=== PATIENT | female | born 1980 | race Caucasian/White ===

== ENCOUNTER 2020-01-17 10:35 | Emergency (ER) | payer OTHER, SELFPAY ==
[2020-01-17 10:39] VITALS: BP 137/89; PULSE 91; RESP 12; TEMP 36.7; O2SAT 99
--- NOTE | 2020-01-17 10:45 | ED.DIZZY ---
HPI - Dizziness General Chief Complaint: Dizziness Stated Complaint: dizziness for 1 day Time Seen by Provider: 01/17/20 10:44 Source: patient and RN notes reviewed Mode of arrival: ambulatory Limitations: no limitations History of Present Illness HPI Narrative: A 39 y/o female presents to the ED with severe dizziness beginning yesterday morning when she woke up. She describes the dizziness as room spinning and states she needed help walking. She reports associated N/V, intermittent CLINT hand numbness, and a HELLER yesterday, that has since resolved. She notes that turning her head aggravates her dizziness and denies anything alleviating it. She also denies any ear pain, hearing changes, cough, sore throat, rhinooreha, nasal congestion, CP, fevers, or ABD pain. MD elicited complaint: dizziness Onset (ago): day(s) (yesterday) Timing: awoke with symptoms Description: room spinning Exacerbating factors: other (turning head) Relieving factors: nothing Associated symptoms: nausea, vomiting and other (Intermittent CLINT hand numbness, HELLER (resolved)) Related Data Allergies Allergy/AdvReac Type Severity Reaction Status Date / Time Penicillins Allergy Unknown Rash Verified 01/17/20 10:45 Review of Systems Review of Systems: All systems reviewed & are unremarkable except as noted in HPI and below Constitutional: Constitutional: Denies fever(s) ENT: Denies nasal congestion, Denies nasal discharge, Denies sore throat and Denies other (ear pain, hearing changes) Cardiovascular: Cardiovascular: Denies chest pain Respiratory: Respiratory: Denies cough Gastrointestinal: Gastrointestinal: Denies abdominal pain, Reports nausea and Reports vomiting Neurologic: Reports dizziness, Reports headache(s) (resolved) and Reports numbness (intermittent CLINT hand) PMFSH Past Medical History Medical History (Updated 01/17/20 @ 11:11 by Payton Donahue MD) Heart murmur Surgical History Surgical History (Updated 01/17/20 @ 11:05 by Jabari Gallardo) H/O prior ablation treatment History of appendectomy History of dilation and curettage Previous section x3. Social History Social History (Updated 01/17/20 @ 11:05 by Jabari Gallardo) Smoking packs per day: 0.5 Smoking cigarettes per day: 10.0 Smoking status: Current every day smoker Exam Const: General: cooperative, no acute distress and alert Nutritional Appearance: well nourished Orientation/consciousness: patient oriented x3 Limitations: no limitations HENMT: Ears: TM normal on the right and TM abnormal wth effusion serous on the left (no erythema) Mouth: Yes lip normal and Yes moist mucous membranes Resp: Effort & Inspection: normal respiratory effort Auscultation: clear to auscultation bilaterally Cardio: Rate: regular rate Rhythm: regular rhythm GI: GI Palp: Yes Soft to palpation and No Tenderness to palpation present (GI) Auscultation: normal bowel sounds Skin: General skin exam: normal color Neuro: General: patient oriented x3 Cognition (Neuro): normal cognition Speech: normal speech Extrem: General: normal to inspection, full ROM and no clubbing, cyanosis or edema Psych: Mental Status: mental status grossly normal Affect: normal affect Attitude: cooperative Course Course Emergency Course: Patient with serous effusion behind her left tympanic membrane and symptoms consistent with peripheral vertigo. Patient will be discharged home with meclizine and Zofran for symptomatic management and is advised to follow-up with primary care physician customer acquisition specialist for further care if not improving. Vital Signs Vital signs: Vital Signs Temperature 98.0 F 01/17/20 10:39 Pulse Rate 91 01/17/20 10:39 Respiratory Rate 12 01/17/20 10:39 Blood Pressure 137/89 01/17/20 10:39 Pulse Oximetry 99 01/17/20 10:39 Temperature 98.0 F 01/17/20 10:39 Pulse Rate 91 01/17/20 10:39 Respiratory Rate 12 01/17/20 10:39 Blood Pressure 137/89 01/17/20 10:39 Puls
--- NOTE | 2020-01-17 10:47 | ECG_ITS ---
Measurements Intervals [place] Rate: 89 P: 73 MS: 149 QRS: 42 QRSD: 83 T: 25 QT: 337 QTc: 412 Interpretive Statements SINUS RHYTHM NORMAL ECG Electronically Signed On 01-17-2020 10:50:50 CDT by Heath Baxter D.O.
[2020-01-17] MEDS: MECLIZINE HCL 25 MG TABLET PO (10:59)
[2020-01-17] MEDS: ONDANSETRON HCL ODT 4 MG TABLET PO (10:59)
[2020-01-17 11:21] VITALS: BP 111/79; PULSE 75; RESP 20; O2SAT 100
== END 2020-01-17 11:22 | disposition home or self-care (01) ==
PROVIDERS: Emergency Provider Emergency Medicine
DX: H81.393 Other peripheral vertigo, bilateral (principal); H65.92 Unspecified nonsuppurative otitis media, left ear; F17.210 Nicotine dependence, cigarettes, uncomplicated
CPT/HCPCS: 93005; 99283; A9270

== ENCOUNTER 2022-12-16 13:08 | Outpatient (CLI) | payer BC, SELFPAY ==
[2022-12-16 14:21] LABS: Basophils Percent Auto 0.2 % (0.2-1.2); Eosinophils Percent Auto 0.5 % (0-4.4); Hematocrit 37.1 % (37.0-47.0); Hemoglobin 12.5 g/dL (12.0-15.0); Immature Granulocyte Absolute 0.02 K/mm3 (0.00-0.031); Immature Granulocyte Percent A 0.5 % (0-0.5); Lymphocytes Absolute Auto 1.15 K/mm3 (0.9-3.2); Lymphocytes Percent Auto 26.7 % (18.3-44.2); Mean Corpuscular HGB Conc 33.7 g/dl (32-36); Mean Platelet Volume 11.2 fl (7.4-10.4); Monocytes Absolute Auto 0.3 K/mm3 (0.1-0.6); Monocytes Percent Auto 7.9 % (2.6-8.5); Neutrophils Absolute Auto 2.8 K/mm3 (1.3-6.7); Neutrophils Percent Auto 64.2 % (45.5-73.1); Platelet Count Result 200 k/mm3 (150-375); Red Blood Count 4.17 M/mm3 (4.2-5.4); Red Cell Distribution Width 12.8 % (11.5-14.5); White Blood Count 4.3 K/mm3 (4.5-10.0)
[2022-12-16 14:31] LABS: Alanine Aminotransferase 15 U/L (6-35); Albumin Level 4.5 g/dL (3.5-5.1); Alkaline Phosphatase 48 U/L (38-126); Anion Gap 5 mmol/L (8-16); Aspartate Amino Transferase 21 U/L (14-36); Bilirubin,Total 0.7 mg/dL (0.2-1.3); Blood Urea Nitrogen 11 mg/dL (7-17); Calcium 8.8 mg/dL (8.4-10.2); Carbon Dioxide 25 mmol/L (22-30); Chloride 103 mmol/L (98-107); Estimated Glomerular Filt Rate > 60; Glucose 84 mg/dL (65-110); Potassium 3.6 mmol/L (3.4-5.0); Sodium 133 mmol/L (137-145)
[2022-12-16 14:42] LABS: Appearance Urine Clear (Clear); Bilirubin Urine Negative (Negative); Blood Urine 1+ (Negative); Color Urine Yellow (Yellow); Glucose Urine UA Negative (Negative); Ketones Urine Negative (Negative); Leukocyte Esterase Ur Negative LEU/UL (NEGATIVE); Nitrate Urine Negative (Negative); Protein Urine Negative (Negative); Specific Grav Ur >= 1.030 (1.001-1.035); Urobilinogen Urine 0.2 mg/dL (<2.0); pH Urine 5.5 (5.0-9.0)
[2022-12-16 14:53] LABS: Mucus Urine Few /lpf; Squamous Epithelial Cell Urine Few /hpf (Few); WBC Urine 0-3 /hpf (0-3)
[2022-12-16 14:55] LABS: Add Urine Microscopic? NO
[2022-12-16 15:00] LABS: Thyroid Stimulating Hormone 0.943 uIU/mL (0.465-4.680)
== END 2022-12-16 13:09 | disposition home or self-care (01) ==
PROVIDERS: Visit Provider Nurse Practitioner Family
DX: R42 Dizziness and giddiness (principal); Z76.89 Persons encountering health services in other specified circumstances
CPT/HCPCS: 36415; 80053; 81003; 84443; 85025

== ENCOUNTER 2024-03-01 09:37 | Outpatient (CLI) | payer BC, OTHER, MEDICAID, SELFPAY ==
--- NOTE | ~2024-03-01 | MM_ITS ---
EXAMINATION: MM screening kae BI w kay HISTORY: Screening mammogram TECHNIQUE: Craniocaudal and mediolateral oblique 3-D tomosynthesis images were obtained and synthetic 2-D images were generated. CAD analysis was submitted and interpreted. COMPARISON: No prior mammogram is available for comparison at this institution. BREAST PARENCHYMAL COMPOSITION: There are scattered areas of fibroglandular density. FINDINGS: There is no evidence of suspicious mass, calcification, or architectural distortion to sugg est malignancy in either breast. There has been no suspicious interval change. IMPRESSION: 1. No mammographic evidence of malignancy. 2. Recommend routine screening mammography in one year. BI-RADS Category 1: Negative Reviewed, dictated and finalized at location B.
== END 2024-03-01 09:38 | disposition home or self-care (01) ==
PROVIDERS: PCP Nurse Practitioner Family; Visit Provider Obstetrics & Gynecology
DX: Z12.31 Encounter for screening mammogram for malignant neoplasm of breast (principal)
CPT/HCPCS: 77063; 77067

== ENCOUNTER 2024-08-25 12:38 | Outpatient (CLI) | payer BC, SELFPAY ==
[2024-08-25 12:55] LABS: Hematocrit 40.5 % (37.0-47.0); Hemoglobin 13.5 g/dL (12.0-15.0); Immature Granulocyte Absolute 0.01 K/mm3 (0.00-0.031); Immature Granulocyte Percent A 0.2 % (0-0.5); Lymphocytes Absolute Auto 0.93 K/mm3 (0.9-3.2); Lymphocytes Percent Auto 22.2 % (18.3-44.2); Mean Corpuscular HGB Conc 33.3 g/dl (32-36); Mean Corpuscular Hemoglobin 30.8 pg (26-34); Mean Corpuscular Volume 92.5 fl (80-100); Mean Platelet Volume 10.2 fl (7.4-10.4); Monocytes Absolute Auto 0.3 K/mm3 (0.1-0.6); Monocytes Percent Auto 7.4 % (2.6-8.5); Neutrophils Absolute Auto 2.9 K/mm3 (1.3-6.7); Neutrophils Percent Auto 69.2 % (45.5-73.1); Platelet Count Result 197 k/mm3 (150-375); Red Blood Count 4.38 M/mm3 (4.2-5.4); Red Cell Distribution Width 13.2 % (11.5-14.5); White Blood Count 4.2 K/mm3 (4.5-10.0)
[2024-08-25 13:07] LABS: Alanine Aminotransferase 16 U/L (6-35); Albumin Level 4.4 g/dL (3.5-5.1); Alkaline Phosphatase 43 U/L (38-126); Anion Gap 6 mmol/L (4-12); Aspartate Amino Transferase 20 U/L (14-36); Bilirubin,Total 0.5 mg/dL (0.2-1.3); Blood Urea Nitrogen 13 mg/dL (7-17); Carbon Dioxide 28 mmol/L (22-30); Chloride 105 mmol/L (98-107); Cholesterol 155 mg/dL (0-200); Estimated Glomerular Filt Rate > 60; Glucose 77 mg/dL (65-110); HDL Direct 63 mg/dL; Potassium 3.8 mmol/L (3.4-5.0); Sodium 139 mmol/L (137-145); Triglycerides 81 mg/dL (<150)
[2024-08-25 13:18] LABS: LDL Cholesterol Direct 62 mg/dL
== END 2024-08-25 12:39 | disposition home or self-care (01) ==
PROVIDERS: PCP Nurse Practitioner Family; Visit Provider Nurse Practitioner Family
DX: Z00.00 Encounter for general adult medical examination without abnormal findings (principal)
CPT/HCPCS: 36415; 80053; 80061; 85025

== ENCOUNTER 2024-12-22 13:02 | Outpatient (CLI) | payer BC, SELFPAY ==
--- NOTE | ~2024-12-22 | XR_ITS ---
CHEST RADIOGRAPH, PA AND LATERAL CLINICAL HISTORY: R06.02 - Shortness of breath . COMPARISON: None available TECHNIQUE: PA and lateral views of the chest. FINDINGS The cardiomediastinal silhouette is unremarkable. The lungs are clear. Visualized osseous structures and soft tissues are unremarkable. IMPRESSION: No focal infiltrate or effusion. Reviewed, dictated and finalized at location A. [employer]IC[employer]
--- OUTSIDE RECORDS SUMMARY | 2024-12-22 14:35 | XMS_ITS | CONTINUITY OF CARE DOCUMENT ---
Author Name abhilash hung Address Unknown Organization [facility] Address [address] [place] [address] Phone [phone] Care Team Providers Care Claims Investigator Name Role Phone Carlos A Almonte MD Unavailable Carlos A Almonte MD Unavailable WICHO JON MD Unavailable [phone] [employer]ANCE [employer] Payer name Policy type / Coverage type [place] [employer] [facility] Medicaid 0 [id number]
== END 2024-12-22 13:03 | disposition home or self-care (01) ==
PROVIDERS: PCP Nurse Practitioner Family; Visit Provider Nurse Practitioner Family
DX: R06.02 Shortness of breath (principal)
CPT/HCPCS: 71046

== ENCOUNTER 2025-07-18 09:48 | Outpatient (CLI) | payer BC, SELFPAY ==
[2025-07-18 10:25] LABS: Hematocrit 38.6 % (37.0-47.0); Hemoglobin 12.5 g/dL (12.0-15.0); Immature Granulocyte Percent A 0.4 % (0-0.5); Lymphocytes Absolute Auto 1.17 K/mm3 (0.9-3.2); Mean Corpuscular HGB Conc 32.4 g/dl (32-36); Mean Corpuscular Hemoglobin 29.6 pg (26-34); Mean Corpuscular Volume 91.5 fl (80-100); Nucleated Red Blood Cells Absolute Auto 0.000 K/mm3 (0.0-0.012); Nucleated Red Blood Cells Perc 0.0 % (0.0-0.2); Platelet Count Result 221 k/mm3 (150-375); Red Blood Count 4.22 M/mm3 (4.2-5.4); White Blood Count 4.8 K/mm3 (4.5-10.0)
[2025-07-18 10:46] LABS: Alanine Aminotransferase 17 U/L (6-35); Albumin Level 4.2 g/dL (3.5-5.1); Alkaline Phosphatase 51 U/L (38-126); Anion Gap 4 mmol/L (4-12); Aspartate Amino Transferase 22 U/L (14-36); Bilirubin,Total 0.5 mg/dL (0.2-1.3); Blood Urea Nitrogen 15 mg/dL (7-17); Calcium 9.0 mg/dL (8.4-10.2); Carbon Dioxide 27 mmol/L (22-30); Chloride 105 mmol/L (98-107); Cholesterol 157 mg/dL (0-200); Estimated Glomerular Filt Rate > 60; Glucose 90 mg/dL (65-110); HDL Direct 71 mg/dL; Iron 108 ug/dL (37-170); Potassium 4.0 mmol/L (3.4-5.0); Sodium 136 mmol/L (137-145); Total Protein 6.9 g/dL (6.3-8.2); Triglycerides 42 mg/dL (<150)
[2025-07-18 10:56] LABS: Percent Iron Saturation 37 % (20-50)
[2025-07-18 11:06] LABS: Free T3 3.02 pg/mL (2.71-6.16); Free T4 Free Thyroxine 0.78 ng/dL (0.78-2.19)
[2025-07-18 11:22] LABS: Thyroid Stimulating Hormone 1.360 uIU/mL (0.465-4.680)
[2025-07-18 11:29] LABS: Ferritin 52.40 ng/mL (6.24-137)
== END 2025-07-18 09:49 | disposition home or self-care (01) ==
PROVIDERS: PCP Nurse Practitioner Family; Visit Provider Nurse Practitioner Family
DX: F41.9 Anxiety disorder, unspecified (principal); F41.8 Other specified anxiety disorders; Z00.00 Encounter for general adult medical examination without abnormal findings; D64.9 Anemia, unspecified
CPT/HCPCS: 36415; 80053; 80061; 82728; 83540; 83550; 84439; 84443; 84481; 85025